=== PATIENT | male | born 1980 | race Caucasian/White ===

== ENCOUNTER 2020-07-04 09:56 | Outpatient (REF) | payer OTHER, SELFPAY | END 2020-07-04 09:57 | disposition home or self-care (01) | LOC: HO.LAB 09:56 | PROVIDERS: Visit Provider Internal Medicine | DX: Z20.822 Contact with and (suspected) exposure to COVID-19 (principal) | CPT/HCPCS: 36415; C9803; U0003; U0005 ==

== ENCOUNTER 2022-02-01 09:35 | Emergency (ER) | payer OTHER, SELFPAY ==
--- NOTE | 2022-02-01 09:45 | ED.OVERDOSE ---
HPI - Overdose General Chief Complaint: Overdose Stated Complaint: FOUND UNSRESP IN CAR,GIVEN NARCAN W/NO RESULTS Time Seen by Provider: 02/01/22 09:44 Source: EMS Mode of arrival: EMS Limitations: altered mental status History of Present Illness HPI Narrative: found unresponsive / not breathing in transitional care manager's seat no trauma given 2 rounds of narcan by bystanders - woke up with EMS shaking chills to voice agitated, 100% with EMS MD complaint: accidental overdose Onset (ago): unknown Context: Intentional Overdose: relationship problems Context: Accidental Overdose: wanted to get high Treatments Prior to Arrival: narcan (2 round unknown mg amount) Related Data Allergies Allergy/AdvReac Type Severity Reaction Status Date / Time Unable to Assess Allergy Verified 02/01/22 11:06 Review of Systems Review of Systems: ROS unable to be obtained due to altered mental status [facility] Past Medical History Attestation statement: The following information was validated with the patient. Medical History Active substance abuse Social History Social History (Updated 02/01/22 @ 10:50 by Janina Larsen DO) Patient Tobacco Use Status: Tobacco use Unknown Advance Directives: No Advance Directives Information Provided: No Physical Exam Vital Signs: Vital Signs: Last Vital Signs Temp 98 F 02/01/22 09:53 Pulse 85 02/01/22 12:21 Resp 14 02/01/22 12:21 BP 110/75 02/01/22 12:21 Pulse Ox 100 02/01/22 12:21 O2 Del Method 02/01/22 12:21 O2 Flow Rate 1 02/01/22 12:21 BMI result Body Mass Index 24.3 Appearance: Alert. will not answer questions, moving away, opens eyes to name No acute distress. Eyes: Pupils equal, round and reactive to light. pinpoint ENT: Pharynx normal. Atraumatic Neck: Normal inspection. Neck supple. CVS: Normal heart rate and rhythm. Pulses normal. Respiratory: No respiratory distress. Breath sounds normal. Abdomen: Soft and nontender. Skin: Skin warm and dry. Normal skin color. Normal skin turgor. Extremities: No lower extremity edema. Neuro: moves all extremities will not answer questions just says yes or no moves away from people. No motor deficit. No sensory deficit. Course Course Course Narrative: 6 hours easily woken denies drug use given narcan to go home no SI refuses detox or SUDE evaluation MDM - Overdose MDM Narrative Medical decision making narrative: 42 yo male no trauma not cooperative suspected opiate overdose - will monitor until more awake, does not report SI. Discharge Plan Discharge Clinical Impression: Drug overdose Qualifiers: Encounter type: initial encounter Injury intent: accidental or unintentional Qualified Code(s): T50.901A - Poisoning by unspecified drugs, medicaments and biological substances, accidental (unintentional), initial encounter Patient Disposition: Home, Self-Care Instructions: Adult Overdose (ED) Additional Instructions: return to ED for any worsening symptoms or concerns please stop using drugs Print Language: Guyanese
[2022-02-01 09:51] VITALS: PULSE 110; O2SAT 100
[2022-02-01 09:53] VITALS: PULSE 108; RESP 15; TEMP 36.6; O2SAT 100; BMI 24.3
[2022-02-01 10:17] VITALS: BP 149/85; PULSE 97; RESP 13; O2SAT 92
--- NOTE | 2022-02-01 10:45 | PC.NURSE ---
security called for a change management lead, and belongings secured in decon pt very sleepy but vs stable at this time, sating at 100% on 2l, ns on the monitor at 88
[2022-02-01 12:21] VITALS: BP 110/75; PULSE 85; RESP 14; O2SAT 100
--- NOTE | 2022-02-01 12:22 | PC.NURSE ---
pt still very sleepy, respirations even and unlabored, in no apparent distress at this time, ns on the monitor
[2022-02-01 15:24] VITALS: BP 123/89; PULSE 74; RESP 16; O2SAT 98
--- NOTE | 2022-02-01 15:30 | PC.NURSE ---
pt offered to speak to someone about detox, but pt states he does not want detox lewis at bedside pt wants to go home
[2022-02-01] MEDS: Naloxone HCl Nasal TAKE HOME 4 MG SPRAY NOSTRILALT (15:32)
--- NOTE | 2022-02-01 15:38 | HO.SUDE ---
Pt declines SUDE.
== END 2022-02-01 15:38 | disposition home or self-care (01) ==
PROVIDERS: Emergency Provider Emergency Medicine
DX: T40.1X1A Poisoning by heroin, accidental (unintentional), initial encounter (principal); Y92.9 Unspecified place or not applicable; Z71.51 Drug abuse counseling and surveillance of drug abuser
CPT/HCPCS: 99284

== ENCOUNTER 2022-06-28 14:10 | Emergency (ER) | payer OTHER, SELFPAY ==
--- NOTE | ~2022-06-28 | XR_ITS ---
EXAMINATION: XR hand wrist RT CLINICAL INFORMATION: Reason for Exam r/o fx COMPARISON: None. TECHNIQUE: 3 views right hand, scaphoid view right wrist FINDINGS: No acute fracture or dislocation. Healed fracture of the distal fifth metacarpal with mild angular deformity. Soft tissue swelling about the distal forearm. Joint spaces throughout the hand and wrist are maintained. XR/XR hand wrist RT IMPRESSION: 1. No acute fracture or dislocation. 2. Healed distal fifth metacarpal fracture. 3. Soft tissue swelling about the distal forearm.
--- NOTE | ~2022-06-28 | CT_ITS ---
EXAMINATION: CT HEAD WITHOUT CONTRAST CLINICAL INFORMATION: Altered mental status. COMPARISON: None. TECHNIQUE: Contiguous axial imaging was performed from the skull base to vertex without intravenous administration of contrast. This CT examination was performed using dose optimization techniques as appropriate, variously including the following: *Automated exposure control *Adjustment of mA and/or kV according to patient size (this includes techniques or standardized protocols for targeted exams where dose is matched to indication/reason for exam; i.e. extremities or head) *Use of iterative reconstruction technique DLP: 1708 mGy-cm. FINDINGS: There is no intracranial hemorrhage, large infarction, or mass lesion. There is no extra-axial collection. The ventricles are normal in size and configuration without evidence of hydrocephalus. The visualized paranasal sinuses and mastoid air cells are clear. CT/CT head/brain wo IV con IMPRESSION: No gross acute abnormality identified. Moderate to severe motion degradation somewhat limits evaluation.
--- NOTE | 2022-06-28 14:25 | MHC.CARE ---
ROLANDON co response involved in de-escalating patient and contacting EMS. Patient is noted to have been on the outside of the railings on the [address] threatening to jump over. Co response spent 45 minutes spent 45 minutes de-escalating pt.
[2022-06-28 14:29] VITALS: BP 137/80; PULSE 100; RESP 22; TEMP 36.7; O2SAT 98; BMI 21.5
--- NOTE | 2022-06-28 15:34 | ECG_ITS ---
Test Reason : CLEARANCE Blood Pressure : / mmHG Vent. Rate : 076 BPM Atrial Rate : 076 BPM P-R Int : 110 ms QRS Dur : 108 ms QT Int : 382 ms P-R-T Axes : 007 -08 022 degrees QTc Int : 429 ms Sinus rhythm with short AL Minimal voltage criteria for LVH, may be normal variant ( Sokolow-Reynolds ) Borderline ECG No previous ECGs available Referred By: Lisandra Berry Electronically Signed By:OUMAR MERCADO MD
[2022-06-28 15:37] VITALS: PULSE 75; O2SAT 99
--- NOTE | 2022-06-28 15:39 | ED_ITS ---
HPI - Psych General Chief Complaint: Psychiatric Symptoms Stated Complaint: CRISIS,RESTRAINED PER EMS Time Seen by Provider: 06/28/22 15:30 Source: RN notes reviewed Mode of arrival: EMS Limitations: other (Altered, overdose?) History of Present Illness HPI Narrative: Patient's nurse informs me that the patient came via ambulance from the community. Seems that patient was Section 12 by N in the field. Seems that N and police Department with our the scene, patient was trying to jump off a bridge. Seems that patient is under the influence this of drugs, combination of opiates in PCP. Patient's nurse also informs me that police department reported that patient had to be physically restrained with handcuffs and patient has bruising to the right wrist an abrasion to the forehead. Patient is somnolent, not making any sense. Unable to give any history. EMS reported that patient is very upset because he is going through divorce. Related Data Allergies Allergy/AdvReac Type Severity Reaction Status Date / Time Unable to Assess Allergy Verified 02/01/22 11:06 Review of Systems Review of Systems: Yes Unobtainable due to mental status PMFSH Past Medical History Medical History Active substance abuse Social History Social History (Updated 02/01/22 @ 10:50 by Janina Larsen DO) Alcohol intake: current Patient Tobacco Use Status: Current everyday Tobacco user Advance Directives: No Advance Directives Information Provided: No Healthcare Proxy: No Guardian: No Physical Exam Vital Signs: Vital Signs: Last Vital Signs Temp 99 F 06/28/22 20:07 Pulse 87 06/28/22 20:07 Resp 17 06/28/22 20:07 BP 110/71 06/28/22 20:07 Pulse Ox 97 06/28/22 20:07 O2 Del Method 06/28/22 20:07 BMI result Body Mass Index 21.5 Const: Other: Appearance: Somnolent, unable to give any history, Eyes: Pupils equal, round and reactive to light. ENT: Pharynx normal. Neck: Normal inspection. Neck supple. No lymph nodes noted. No crepitus CVS: Normal heart rate and rhythm. Pulses normal. Normal S1 and S2 Respiratory: No respiratory distress. Breath sounds normal. No Wheezing. No rales Abdomen: Soft and nontender. No rigidity. No distention. Skin: Skin warm and dry. Normal skin color. Normal skin turgor. Extremities: No lower extremity edema. No Lacerations. No Rash Neuro: Oriented X 3. No motor deficit. No sensory deficit. Moving all extremities. No slurred speech. CN 2 through 12 grossly intact Psych: Somnolent, just making noises, nothing anywhere Course Course Course Narrative: -the patient's labs are pending -we will go ahead and obtain head CT -patient is on a Section 12 that was started by [facility] in the community -patient is with a one-to-one sitter -patient unable to hold still for EKG to rule out brain bleed. Patient was given 2 mg of IM Ativan -physician observation started at 15:45 Medications Administered Discontinued Medications Generic Name Dose Route Start Last Admin Trade Name Martyq PRN Reason Stop Dose Admin Lorazepam 2 mg 06/28/22 16:17 06/28/22 17:11 Lorazepam 2 Mg/Ml Vial IM 06/28/22 16:18 Not Given STAT STA Medical Decision Making Medical Decision Making [facility] Narrative: -head CT and x-ray did not show any acute abnormalities. -patient's white blood cell count slightly elevated, likely reactive leukocytosis. -urinalysis and U tox pending. -patient waiting to be seen by the care team -the care team evaluated the patient, patient is still impaired, but still voicing SI. However, it was clear that patient attempted to end his life by ju mping off a bridge. Patient remains on a Section 12 and will be an inpatient bed search Differential Diagnosis Differential Diagnoses: The differential diagnosis associated with the presentation includes (Anxiety, depression, suicidal ideation, substance abuse) Admission/Observation Consideration of admission/observation: Escalation of care including admission/observation considered (Patient is currently under observation, waiting to be seen by the care team to determine disposition. Likely to be inpatient bed search) Lab Data [facility] Lab Attestation statement: I reviewed the patient's lab results. 06/28/22 16:37 06/28/22 16:37 Labs: Lab Results 06/28/22 06/28/22 06/28/22 Range/Units 16:37 16:37 16:37 WBC 13.0 H (4.8-10.8) X10*3/uL RBC 4.49 L (4.60-5.80) X10*6/uL Hgb 13.5 L (14.0-18.0) g/dl Hct 39.3 L (42.0-52.0) % MCV 87.5 (80.0-98.0) fL MCH 30.1 (27.0-33.0) pg MCHC 34.4 (31.0-36.0) g/dl RDW 12.2 (11.0-16.0) % Plt Count 289 (160-400) X10*3/uL MPV 10.4 (9.4-12.4) fL Immature Gran % (Auto) 0.3 (0.0-0.4) % Neut % (Auto) 70.1 (45-73) % Lymph % (Auto) 21.3 (20-40) % [place] % (Auto) 7.9 (2-11) % Eos % (Auto) 0.1 (0-4) % Baso % (Auto) 0.3 (0-2) % Lymph # (Auto) 2.8 (1.2-4.9) X10*3/uL [place] # (Auto) 1.0 (0.1-1.2) X10*3/uL Eos # (Auto) 0.0 (0.0-0.4) X10*3/uL Baso # (Auto) 0.0 (0.0-0.2) X10*3/uL Abs Immat Gran (auto) 0.04 H (0.00-0.03) X10*3/uL Absolute Neuts (auto) 9.1 H (2.0-8.3) x10*3/uL Absolute Nucleated RBC 0.000 (0.0-0.012) X10*3/uL Nucleated RBC % (auto) 0.0 (0.0-0.2) /100WBC Sodium 141 (135-145) mmol/L Potassium 3.8 (3.3-5.1) mmol/L Chloride 101 (96-108) mmol/L Carbon Dioxide 29 (22-29) mmol/L Anion Gap 15 (12-20) BUN 20 H (9-16) mg/dL Creatinine 1.07 (0.5-1.4) mg/dL Estim Creat Clear Calc 91.5 Estimated GFR > 60 Random Glucose 81 (60-115) mg/dL Calcium 9.9 (8.4-10.2) mg/dL Magnesium 2.4 (1.6-2.6) mg/dL Total Bilirubin 1.1 H (0.0-1.0) mg/dL Direct Bilirubin 0.3 (0.0-0.5) mg/dL AST 90 H (5-37) U/L ALT 55 H (0-40) U/L Alkaline Phosphatase 56 (39-117) U/L Total Protein 7.7 (6.5-8.0) g/dL Albumin 4.7 (3.5-5.0) g/dL Urine Color Urine Appearance Urine pH (5.0-9.0) Ur Specific [place] (1.005-1.025) Urine Protein (Neg-Trace) mg/dL Urine Glucose (UA) (Negative) mg/dL Urine Ketones (Negative) mg/dL Urine Blood (Negative) Urine Nitrite (Negative) Ur Leukocyte Esterase (Negative) Urine RBC (0-2) /HPF Urine WBC (0-5) /HPF Ur Squamous Epith Cells (0-2) /HPF Urine Bacteria (None Seen) Hyaline Casts (0-2) /LPF Urine Opiates Screen (Not Detect) Urine Fentanyl Screen (Not Detect) Ur Barbiturates Screen (Not Detect) Ur Phencyclidine Scrn (Not Detect) Ur Amphetamines Screen (Not Detect) U Benzodiazepines Scrn (Not Detect) Urine Cocaine Screen (Not Detect) U Marijuana (THC) Screen (Not Detect) Ethyl Alcohol < 10 mg/dL COVID-19 (HARI) Negative (Negative) COVID-19 Clin Com See Note 06/28/22 06/28/22 Range/Units 19:15 19:15 WBC (4.8-10.8) X10*3/uL RBC (4.60-5.80) X10*6/uL Hgb (14.0-18.0) g/dl Hct (42.0-52.0) % MCV (80.0-98.0) fL MCH (27.0-33.0) pg MCHC (31.0-36.0) g/dl RDW (11.0-16.0) % Plt Count (160-400) X10*3/uL MPV (9.4-12.4) fL Immature Gran % (Auto) (0.0-0.4) % Neut % (Auto) (45-73) % Lymph % (Auto) (20-40) % [place] % (Auto) (2-11) % Eos % (Auto) (0-4) % Baso % (Auto) (0-2) % Lymph # (Auto) (1.2-4.9) X10*3/uL [place] # (Auto) (0.1-1.2) X10*3/uL Eos # (Auto) (0.0-0.4) X10*3/uL Baso # (Auto) (0.0-0.2) X10*3/uL Abs Immat Gran (auto) (0.00-0.03) X10*3/uL Absolute Neuts (auto) (2.0-8.3) x10*3/uL Absolute Nucleated RBC (0.0-0.012) X10*3/uL Nucleated RBC % (auto) (0.0-0.2) /100WBC Sodium (135-145) mmol/L Potassium (3.3-5.1) mmol/L Chloride (96-108) mmol/L Carbon Dioxide (22-29) mmol/L Anion Gap (12-20) BUN (9-16) mg/dL Creatinine (0.5-1.4) mg/dL Estim Creat Clear Calc Estimated GFR Random Glucose (60-115) mg/dL Calcium (8.4-10.2) mg/dL Magnesium (1.6-2.6) mg/dL Total Bilirubin (0.0-1.0) mg/dL Direct Bilirubin (0.0-0.5) mg/dL AST (5-37) U/L ALT (0-40) U/L Alkaline Phosphatase (39-117) U/L Total Protein (6.5-8.0) g/dL Albumin (3.5-5.0) g/dL Urine Color Dark Yellow Urine Appearance Cloudy Urine pH 5.5 (5.0-9.0) Ur Specific [place] >= 1.030 H (1.005-1.025) Urine Protein 100 (2+) H (Neg-Trace) mg/dL Urine Glucose (UA) Negative (Negative) mg/dL Urine Ketones 15 (Negative) mg/dL Urine Blood Negative (Negative) Urine Nitrite Negative (Negative) Ur Leukocyte Esterase Negative (Negative) Urine RBC 0-2 (0-2) /HPF Urine WBC 0-5 (0-5) /HPF Ur Squamous Epith Cells 3-5 (0-2) /HPF Urine Bacteria None Seen (None Seen) Hyaline Casts 3-5 (0-2) /LPF Urine Opiates Screen Not Detected (Not Detect) Urine Fentanyl Screen POSITIVE H (Not Detect) Ur Barbiturates Screen Not Detected (Not Detect) Ur Phencyclidine Scrn Not Detected (Not Detect) Ur Amphetamines Screen Not Detected (Not Detect) U Benzodiazepines Scrn Not Detected (Not Detect) Urine Cocaine Screen POSITIVE H (Not Detect) U Marijuana (THC) Screen Not Detected (Not Detect) Ethyl Alcohol mg/dL COVID-19 (HARI) (Negative) COVID-19 Clin Com Independent Interpretation I performed an independent interpretation of an: Plain X-Ray (Wrist x-ray: My interpretation, no fracture) and CT Scan (Interpretation of head CT, there is significant motion. However, patient has no neurological symptoms to suggest a brain bleed) Radiology Impression Discussion of test interpretation with radiology: I have reviewed the radiologist's reading. Radiologist Impression: FINDINGS: No acute fracture or dislocation. Healed fracture of the distal fifth metacarpal with mild angular deformity. Soft tissue swelling about the distal forearm. Joint spaces throughout the hand and wrist are maintained. XR/XR hand wrist RT IMPRESSION: 1.? No acute fracture or dislocation. 2.? Healed distal fifth metacarpal fracture. 3.? Soft tissue swelling about the distal forearm. ? FINDINGS: There is no intracranial hemorrhage, large infarction, or mass lesion. There is no extra-axial collection. The ventricles are normal in size and configuration without evidence of hydrocephalus. The visualized paranasal sinuses and mastoid air cells are clear. CT/CT head/brain wo IV con IMPRESSION: No gross acute abnormality identified. Moderate to severe motion degradation somewhat limits evaluation Discharge Plan Discharge Clinical Impression: Active substance abuse, Suicidal ideation Patient Disposition: Still a Patient Interventions: Swift-Suicide Risk Severity Scale Last Done: 06/28/22 14:34
[2022-06-28 16:42] LABS: MANUAL DIFF FLAG NO
--- NOTE | 2022-06-28 16:44 | PC.NURSE ---
Pt escorted over to the pod from main ED. Pt tearful at this time, in behavioral control. Provided with pitcher of water, lights dimmed. Awaiting crisis eval at this time.
[2022-06-28 16:47] LABS: Basophils Percent Auto 0.3 % (0-2); Eosinophils Percent Auto 0.1 % (0-4); Hematocrit 39.3 % (42.0-52.0); Hemoglobin 13.5 g/dl (14.0-18.0); Imm Gran Abs Auto 0.04 X10*3/uL (0.00-0.03); Imm Gran Pct Auto 0.3 % (0.0-0.4); Lymphocytes Absolute Auto 2.8 X10*3/uL (1.2-4.9); Lymphocytes Percent Auto 21.3 % (20-40); Mean Corpuscular HGB Conc 34.4 g/dl (31.0-36.0); Mean Corpuscular Hemoglobin 30.1 pg (27.0-33.0); Mean Corpuscular Volume 87.5 fL (80.0-98.0); Mean Platelet Volume 10.4 fL (9.4-12.4); Monocytes Percent Auto 7.9 % (2-11); Neutrophils Absolute Auto 9.1 x10*3/uL (2.0-8.3); Neutrophils Percent Auto 70.1 % (45-73); Platelet Count 289 X10*3/uL (160-400); Red Blood Count 4.49 X10*6/uL (4.60-5.80); Red Cell Distribution Width 12.2 % (11.0-16.0)
[2022-06-28 17:02] LABS: COVID-19 Test Negative (Negative); IDNOW Serial# 08D9AD1C
--- NOTE | 2022-06-28 17:06 | MHC.EDTECH ---
t/w instructed not to perform EKG until patient wakes up. pt arrived to main ED tearful and inconsolable and was given IM medication to calm down. pt asleep at this time. saray rodrigues.
[2022-06-28 17:11] LABS: Alanine Aminotransferase 55 U/L (0-40); Albumin Level 4.7 g/dL (3.5-5.0); Alkaline Phosphatase 56 U/L (39-117); Anion Gap 15 (12-20); Aspartate Amino Transferase 90 U/L (5-37); Bilirubin Direct 0.3 mg/dL (0.0-0.5); Bilirubin Total 1.1 mg/dL (0.0-1.0); Blood Urea Nitrogen 20 mg/dL (9-16); Calcium 9.9 mg/dL (8.4-10.2); Carbon Dioxide 29 mmol/L (22-29); Chloride 101 mmol/L (96-108); Creatinine Clr Calc Pharmacy 91.5; Estimated Glomerular Filt Rate > 60; Ethanol < 10 mg/dL; Glucose Random 81 mg/dL (60-115); Magnesium 2.4 mg/dL (1.6-2.6); Potassium 3.8 mmol/L (3.3-5.1); Sodium 141 mmol/L (135-145); Total Protein 7.7 g/dL (6.5-8.0)
[2022-06-28 19:31] LABS: Appearance Urine Cloudy; Color Urine Dark Yellow; Glucose Urine UA Negative (Negative); Leukocyte Esterase Urine Negative (Negative); Nitrite Urine Negative (Negative); PH 5.5 (5.0-9.0); Specific Gravity - Urine >= 1.030 (1.005-1.025); UMIC TRIGGER UACC YES; Urine Blood Negative (Negative); Urine Ketones 15 mg/dL (Negative); Urine Protein 100 (2+) mg/dL (Neg-Trace)
[2022-06-28 19:43] LABS: Amphetamine Screen Urine Not Detected (Not Detect); Barbiturates, Urine Not Detected (Not Detect); Benzodiazepines Screen Urine Not Detected (Not Detect); Cannabinoid Screen Urine Not Detected (Not Detect); Cocaine Screen Urine POSITIVE (Not Detect); Fentanyl, urine POSITIVE (Not Detect); Opiate Screen Urine Not Detected (Not Detect); Phencyclidine Screen Urine Not Detected (Not Detect)
[2022-06-28 19:49] LABS: Bacteria Urine None Seen (None Seen); WBC Urine 0-5 /HPF (0-5)
[2022-06-28 19:50] LABS: RBC Urine 0-2 /HPF (0-2)
[2022-06-28 20:07] VITALS: BP 110/71; PULSE 87; RESP 17; TEMP 37.2; O2SAT 97
--- NOTE | 2022-06-29 05:52 | PC.NURSE ---
Patient slept through the night, no distress observed/reported, behavior non concerning at this time, patient tearful at the time care team assessment due to divorce, patient has no psychiatric issues, med rec completed/pending provider's approval/patient is not on any psychiatric medication, disposition per care team is section 12 inpatient bed search, VSS, will continue to monitor.
[2022-06-29 06:25] VITALS: BP 118/70; PULSE 74; RESP 16; TEMP 36.7; O2SAT 94
[2022-06-29] MEDS: Acetaminophen 325 MG TABLET 975 MG PO (08:39)
[2022-06-29 14:09] VITALS: BP 134/83; PULSE 66; RESP 16; TEMP 36.4; O2SAT 99
--- NOTE | 2022-06-29 14:49 | MHC.CARE ---
Pt accepted to [facility] for a straight psych inpatient admission. [facility] requested arrival ASHLEY.
--- NOTE | 2022-06-29 15:55 | MHC.EDTECH ---
pt will be transferred to [facility] via [facility] on a section 12. pt will be going out shortly.
== END 2022-06-29 16:17 ==
PROVIDERS: Emergency Provider Emergency Medicine
DX: R45.851 Suicidal ideations (principal); F19.10 Other psychoactive substance abuse, uncomplicated; R40.0 Somnolence; Z20.822 Contact with and (suspected) exposure to COVID-19; F17.200 Nicotine dependence, unspecified, uncomplicated; Z72.89 Other problems related to lifestyle; Z63.5 Disruption of family by separation and divorce
CPT/HCPCS: 70450; 73110; 73130; 80048; 80076; 80307; 81001; 82077; 83735; 85025; 87635; 93005; 99285; S9485